=== PATIENT | male | born 1960 | race Caucasian/White ===

== ENCOUNTER 2019-10-02 06:21 | Emergency (ER) | payer OTHER ==
[2019-10-02 06:35] VITALS: BP 166/94
--- NOTE | 2019-10-02 06:38 | ED Physician Documentation ---
Low Back Pain - HISTORIAN Historian: patient - HPI Stated Complaint: LBP Chief Complaint: Low Back Pain/ Injury Additional Information: Patient presents to ED with low back pain since Sunday. Patient states he pulled a deer out of the ditch on Sunday by himself. The next day he started having right sided low back pain. He continued to [place] through the weekend, however, last night the pain was so intense he kept him awake most of the night. He denies loss of bowel or bladder control. He has no prior history of low back injury or surgeries. Onset: days ago (5) Duration: continues in ED Context: lifting Where: other (pulling deer) Severity: moderate Quality: sharp Associated Symptoms: denies: fever, incontinence, nausea, vomiting, problems urinating Worsened By:: supine Relieved By: nothing - ROS CONST: no problems CVS/RESP: denies: chest pain, shortness of breath EYES/ENT: denies: problems with vision MS/SKIN/LYMPH: back pain. denies: calf pain Neuro/Psych: denies: headache GI/: denies: abdominal pain - PAST HX Past History: denies: back injury, back pain Surgeries/Procedures: denies: back surgery Allergies/Adverse Reactions: Allergies Allergy/AdvReac Type Severity Reaction Status Date / Time No Known Allergies Allergy Verified 10/02/19 06:34 Home Medications: Ambulatory Orders Medication Instructions Recorded Valsartan/Hydrochlorothiazide 1 tab PO 10/02/19 [Diovan Hct 160-25 mg Tablet] amLODIPine BESYLATE [Norvasc] 5 mg PO DAILY 10/02/19 - SOCIAL HX Smoking History: non-smoker Alcohol Use: none Drug Use: none - FAMILY HX Family History: none - VITAL SIGNS Vital Signs: Vital Signs Temp Pulse Resp BP Pulse Ox 98.0 F 64 18 166/94 98 10/02/19 06:30 10/02/19 06:30 10/02/19 06:30 10/02/19 06:30 10/02/19 06:30 - REVIEWED ASSESSMENTS Nursing Assessment Reviewed: Yes Vitals Reviewed: Yes ED Results Lab/Radiology - Orders Orders: ED Orders Category Date Time Status Ketorolac Tromethamine [Toradol] Med 10/02/19 06:42 Once 60 mg IM NOW ONE methylPREDNISolone SOD SUCC [SOLU-Medrol] Med 10/02/19 06:42 Once 125 mg IM NOW ONE Low Back Pain/Injury - Physical Exam General Appearance: no acute distress, alert EENT: ZACH Neck: non-tender, painless ROM Resp/CVS: chest non-tender, breath sounds nml, heart sounds nml Abdomen: non-tender Back: muscle spasm (right iliac crest/erector spinae). No: vertebral point- tendernes Straight Leg Raising: Negative Left, Positive Right Neuro/Psych: oriented x3, motor nml, sensation nml, reflexes nml Skin: warm/dry Extremities: non-tender, no evidence of injury Discharge Clincal Impression: Acute low back pain Qualifiers: Back pain laterality: right Sciatica presence: with sciatica Sciatica laterality: sciatica of right side Qualified Code(s): M54.41 - Lumbago with sciatica, right side Referrals: Primary Doctor,No [Primary Care Provider] - 2 Days Additional Instructions: 1. Tramadol every 8 hours as needed for pain 2. Baclofen every 12 hours as needed for muscle spasm 3. Apply Ice/heat to affected area as needed for comfort 4. Apply biofreeze, bengay, icy hot or aspercreme to affected area as needed for comfort 5. Stay active by walking frequently. No lifting until pain resolves 6. Follow up with PCP within 1 week 7. Return to ER for new or worsening symptoms Condition: Stable Disposition: 01 HOME, SELF-CARE Decision to Admit: NO Date of Decison to Admit: 10/02/19 Decision Time: 06:49
[2019-10-02] MEDS: methylPREDNISolone SOD SUCC 125 MG/2 ML VIAL IM ONE (06:56)
[2019-10-02] MEDS: KETOROLAC TROMETHAMINE 60 MG/2 ML VIAL IM ONE (06:56)
== END 2019-10-02 07:55 | disposition home or self-care (01) ==
LOC: ED 06:21
DX: M54.41 Lumbago with sciatica, right side (principal)
CPT/HCPCS: 96372; 99282; 99284; J1885; J2930

== ENCOUNTER 2019-10-03 19:08 | Emergency (ER) | payer OTHER ==
--- NOTE | 2019-10-03 19:16 | ED Physician Documentation ---
General Adult - HISTORIAN Historian: patient - HPI Stated Complaint: R hip Chief Complaint: General Adult Onset: days ago (2) Timing: still present Severity: moderate Further Comments: yes (Pt is a 58 yo male with R hip pain. Pt was seen here 2 days ago for same complaint. He was rx'd Tramadol and Baclofen, but these have not been adequately effective. Pt received Toradol at last visit with limited relief. Pain came on gradually after the deer lifting episode and did not occur at the time that pt strained his back.) - ROS CONST: no problems EYES/ENT: none CVS/RESP: none GI/: none MS/SKIN/LYMPH: other (back pain with radiation to R thigh) - PAST HX Past History: hypertension Surgeries/Procedures: cholecystectomy, other (hernia, ortho) Allergies/Adverse Reactions: Allergies Allergy/AdvReac Type Severity Reaction Status Date / Time No Known Allergies Allergy Verified 10/03/19 19:25 Home Medications: Ambulatory Orders Medication Instructions Recorded Valsartan/Hydrochlorothiazide 1 tab PO DAILY 10/02/19 [Diovan Hct 160-25 mg Tablet] amLODIPine BESYLATE [Norvasc] 5 mg PO DAILY 10/02/19 - SOCIAL HX Smoking History: non-smoker - FAMILY HX Family History: No - VITAL SIGNS Vital Signs: Vital Signs Temp Pulse Resp BP Pulse Ox 166/94 10/02/19 07:55 - REVIEWED ASSESSMENTS Nursing Assessment Reviewed: Yes Vitals Reviewed: Yes Progress - Progress Progress: X-ray L spine: neg Rx [place] (5/325). Take one or two every 4 to 6 hours as needed for moderate to severe pain. 2 po in ER. General Adult Physical Exam - PHYSICAL EXAM GENERAL APPEARANCE: moderate distress NECK: normal inspection, supple RESPIRATORY: no resp distress, chest non-tender, breath sounds normal CVS: reg rate & rhythm, heart sounds normal ABDOMEN: soft, no organomegaly, normal bowel sounds BACK: other (tenderness, muscle spasm R Lumbar area) SKIN: warm/dry, normal color EXTREMITIES: non-tender, normal range of motion, no evidence of injury NEURO: oriented X3, motor nml, sensation nml Discharge Clincal Impression: Acute low back pain Qualifiers: Back pain laterality: right Sciatica presence: with sciatica Sciatica laterality: sciatica of right side Qualified Code(s): M54.41 - Lumbago with sciatica, right side Referrals: Primary Doctor,No [Primary Care Provider] - Condition: Stable Disposition: 01 HOME, SELF-CARE Decision to Admit: NO Decision Time: 20:30
[2019-10-03 19:39] VITALS: BP 155/94
--- NOTE | 2019-10-03 19:55 | Diagnostic Imaging Report ---
PATIENT MR#: [id number] PATIENT PATIENT NAME: PREMA GARZA DATE OF : 1960 REFERRING PHYSICIAN: Rafael Ríos EXAM DATE: 10/03/2019 ACCESSION NUMBER: [id number] EXAM DESCRIPTION: L SPINE 2 OR 3 VIEWS Lumbar spine, three views History: Back pain after lifting a deer. Findings: The vertebral body heights and alignments are normal. There is intervertebral disc space narrowing at L5-S1 with mild facet arthropathy in the lower lumbar spine. Impression: 1. No acute osseous abnormality. 2. Mild lumbar spondylosis. Read by: Dr. Juan Manuel Hooks Transcribed by: Transcribed Date: Electronically signed by: Dr. Juan Manuel Hooks Date signed: 10/03/2019 7:55:08 PM
[2019-10-03] MEDS: HYDROcodone /APAP 5/325 1 EACH TABLET PO ONE (20:25)
== END 2019-10-03 20:39 | disposition home or self-care (01) ==
LOC: ED 19:08
DX: M54.41 Lumbago with sciatica, right side (principal)
CPT/HCPCS: 72100; 99283; 99284; A9270; S1016